=== PATIENT | male | born 1945 | race Caucasian/White ===

== ENCOUNTER → 2019-10-26 08:20 | Outpatient (BNVA) | payer MEDICARE, SELFPAY | PROVIDERS: Family Provider Family Medicine; PCP Family Medicine; Visit Provider Internal Medicine Rheumatology | DX: M06.00 Rheumatoid arthritis without rheumatoid factor, unspecified site (principal); Z79.899 Other long term (current) drug therapy; M19.90 Unspecified osteoarthritis, unspecified site | CPT/HCPCS: 36415; 80053; 85007; 85027; 99213 ==

== ENCOUNTER → 2019-11-01 10:42 | Outpatient (BNVA) | payer MEDICARE, SELFPAY | PROVIDERS: Family Provider Family Medicine; PCP Family Medicine; Visit Provider Nurse Practitioner Family | DX: R97.20 Elevated prostate specific antigen [PSA] (principal); Z80.42 Family history of malignant neoplasm of prostate | CPT/HCPCS: 84153 ==

== ENCOUNTER → 2020-05-03 09:59 | Outpatient (BNVA) | payer MEDICARE, SELFPAY | PROVIDERS: Family Provider Family Medicine; PCP Family Medicine; Visit Provider Urology | DX: R97.20 Elevated prostate specific antigen [PSA] (principal); N39.9 Disorder of urinary system, unspecified; Z80.42 Family history of malignant neoplasm of prostate | CPT/HCPCS: 84153 ==

== ENCOUNTER 2020-09-11 09:57 | Outpatient (CLI) | payer MEDICARE, SELFPAY ==
--- NOTE | 2020-09-11 10:06 | CT_ITS ---
WS: [id number] CT NECK TECHNIQUE: Contrast-enhanced CT of the neck with coronal and sagittal reformatted images. CLINICAL INFORMATION: ALLERGIC RHINITIS COMPARISON: None. DLP: 2985.[address] scans at [facility] use at least one of these dose optimization techniques: automat ed exposure control; mA and/or kV adjustment per patient size (includes targeted exams where dose is matched to clinical indication); or iterative reconstruction. FINDINGS: Images of the tongue base are degraded due to beam hardening artifact from dental hardware. Parotid g lands and submandibular glands are normal. Normal thyroid gland. Normal parapharyngeal fat. Normal po sterior nasopharynx. No cervical lymphadenopathy. Partially visualized intracranial contents unremarkable. Mastoid air cells and paranasal sinuses are well aerated. No evidence of supraglottic or glottic mass. Normal vallecula and piriform sinuses. Sub glottic airway is patent. Lung apices are well aerated. Small right thyroid nodule measuring 8 mm. Mo derate spondylitic changes cervical spine. CT/CT neck w con* [id number] IMPRESSION: 1. Normal salivary glands. 2. No cervical lymphadenopathy. 3. No evidence supraglottic or glottic mass. Subglottic airway is patent. 4. Paranasal sinuses and mastoid air cells well aerated. 5. Small 8 mm low-attenuation right thyroid nodule.
[2020-09-11] MEDS: iodixanol 320 mg/mL 100mL Btl IV (10:31)
== END 2020-09-11 09:58 | disposition home or self-care (01) ==
LOC: RADWPI 09:59
PROVIDERS: PCP Family Medicine; Visit Provider Specialist
DX: J30.9 Allergic rhinitis, unspecified (principal); E04.1 Nontoxic single thyroid nodule
CPT/HCPCS: 70491; Q9967

== ENCOUNTER → 2021-01-16 09:46 | Outpatient (BNVA) | payer MEDICARE, SELFPAY | PROVIDERS: PCP Family Medicine; Visit Provider Urology | DX: R97.20 Elevated prostate specific antigen [PSA] (principal); Z80.42 Family history of malignant neoplasm of prostate | CPT/HCPCS: G0103 ==

== ENCOUNTER → 2021-04-18 11:03 | Outpatient (BNVA) | payer MEDICARE, SELFPAY | PROVIDERS: PCP Family Medicine; Visit Provider Urology | DX: R97.20 Elevated prostate specific antigen [PSA] (principal); Z80.42 Family history of malignant neoplasm of prostate | CPT/HCPCS: 84153 ==

== ENCOUNTER → 2021-08-02 08:48 | Outpatient (BNVA) | payer MEDICARE, SELFPAY | PROVIDERS: PCP Family Medicine; Visit Provider Urology | DX: R97.20 Elevated prostate specific antigen [PSA] (principal); Z80.42 Family history of malignant neoplasm of prostate | CPT/HCPCS: 84153 ==

== ENCOUNTER → 2021-11-28 10:45 | Outpatient (BNVA) | payer MEDICARE, SELFPAY | PROVIDERS: PCP Family Medicine; Visit Provider Urology | DX: R97.20 Elevated prostate specific antigen [PSA] (principal); Z80.42 Family history of malignant neoplasm of prostate | CPT/HCPCS: 84153 ==

== ENCOUNTER 2022-03-04 14:53 | Outpatient (CLI) | payer MEDICARE, SELFPAY | END 2022-03-04 14:54 | disposition home or self-care (01) | LOC: LAB 14:56 | PROVIDERS: PCP Family Medicine; Visit Provider Urology | DX: R97.20 Elevated prostate specific antigen [PSA] (principal) | CPT/HCPCS: 36415; 84153 ==

== ENCOUNTER → 2022-03-06 13:10 | Outpatient (BNVA) | payer MEDICARE, SELFPAY | PROVIDERS: PCP Family Medicine; Visit Provider Urology | DX: Z80.42 Family history of malignant neoplasm of prostate (principal); R97.20 Elevated prostate specific antigen [PSA] | CPT/HCPCS: 81003; 99213 ==

== ENCOUNTER 2022-04-28 07:19 | Outpatient (CLI) | payer MEDICARE, SELFPAY ==
--- NOTE | 2022-04-28 07:32 | US_ITS ---
WS: [id number] RENAL ULTRASOUND HISTORY: RENAL INSUFFICIENCY COMPARISON: None available. TECHNIQUE: 2-D and color Doppler imaging of the kidney submitted. Right kidney: 9.4 cm x 5.8 cm x 5.6 cm. Normal echogenicity with no hydronephrosis or mass. Left kidney: 9.9 cm x 3.8 cm x 4.0 cm. Normal size kidney. No hydronephrosis or solid mass. Simple cyst superior pole measures 3.7 x 3.4 x 3 .4 cm. Additional simple cyst from the lower pole measures 1.4 x 1.2 x 1.0 cm. Aorta: Mild atherosclerotic plaque. No aneurysm. Urinary Bladder: Very mild bladder wall thickening is diffuse without a focal mass. May be due to out let obstruction. Prostate gland is enlarged measuring 4.9 x 4.0 x 4.1 cm Prostate encroaches into the base of the urinary bladder. US/US renal BI* [id number] IMPRESSION: 1. No hydronephrosis. 2. LEFT kidney contains 2 simple renal cysts. 3. Enlarged prostate gland with bladder wall thickening due to partial outlet obstruction.
== END 2022-04-28 07:20 | disposition home or self-care (01) ==
LOC: RAD 07:26
PROVIDERS: PCP Family Medicine; Visit Provider Family Medicine
DX: N28.9 Disorder of kidney and ureter, unspecified (principal); N28.1 Cyst of kidney, acquired; N40.0 Benign prostatic hyperplasia without lower urinary tract symptoms
CPT/HCPCS: 76770

== ENCOUNTER 2022-06-30 10:04 | Outpatient (CLI) | payer MEDICARE, SELFPAY ==
[2022-06-30 11:00] LABS: Prostate Specific AG Urology 17.92 ng/mL (0-4)
== END 2022-06-30 10:05 | disposition home or self-care (01) ==
LOC: LAB 10:06
PROVIDERS: PCP Family Medicine; Visit Provider Urology
DX: R97.20 Elevated prostate specific antigen [PSA] (principal)
CPT/HCPCS: 84153

== ENCOUNTER → 2022-07-07 13:00 | Outpatient (BNVA) | payer MEDICARE, SELFPAY | PROVIDERS: PCP Family Medicine; Visit Provider Urology | DX: R97.20 Elevated prostate specific antigen [PSA] (principal); Z80.42 Family history of malignant neoplasm of prostate | CPT/HCPCS: 99213 ==

== ENCOUNTER 2022-10-27 11:10 | Outpatient (CLI) | payer MEDICARE, SELFPAY ==
[2022-10-27 12:54] LABS: Prostate Specific AG Urology 15.89 ng/mL (0-4)
== END 2022-10-27 11:11 | disposition home or self-care (01) ==
PROVIDERS: PCP Family Medicine; Visit Provider Urology
DX: R97.20 Elevated prostate specific antigen [PSA] (principal)
CPT/HCPCS: 84153

== ENCOUNTER → 2022-11-04 15:49 | Outpatient (BNVA) | payer MEDICARE, SELFPAY | PROVIDERS: PCP Family Medicine; Visit Provider Urology | DX: R97.20 Elevated prostate specific antigen [PSA] (principal); Z80.42 Family history of malignant neoplasm of prostate | CPT/HCPCS: 81003; 99213 ==

== ENCOUNTER 2023-08-24 12:54 | Outpatient (CLI) | payer MEDICARE, SELFPAY ==
--- NOTE | 2023-08-24 13:00 | USCV_ITS ---
Damir Tej Age: 78 Gender: M : 1945 Exam Date: 08/24/2023 13:31 Ordering Phys: Jayme Brown DO Technologist: Nelly Crowder Exam Location: [facility] – [place] Indication: HTN BP: 142 / 82 HR: 64 Rhythm: Sinus Technical Quality: Suboptimal MEASUREMENTS (Male / Female) Normal Values 2D ECHO LV Diastolic Diameter PLAX 3.9 cm 4.2 - 5.9 / 3.9 - 5.3 cm LV Systolic Diameter PLAX 1.8 cm IVS Diastolic Thickness 0.8 cm 0.6 - 1.0 / 0.6 - 0.9 cm IVS Systolic Thickness 1.8 cm LVPW Diastolic Thickness 1.3 cm 0.6 - 1.0 / 0.6 - 0.9 cm LVPW Systolic Thickness 1.3 cm LVOT Diameter 2.1 cm LV Ejection Fraction 2D Teich 86.0 % LV Ejection Fraction MOD 2C 46.1 % LV Ejection Fraction 2C AL 46.9 % LA Diameter 2.8 cm LA Width 3.8 cm LA Height 4.6 cm RA Width 4.1 cm RA Height 4.6 cm Aorta at Sinotubular Diameter 2.5 cm IVC Diameter 2.6 cm M-MODE Aortic Annulus Diameter 3.0 cm LA Ao Ratio MM 0.9 MV E Point Septal Separation 0.7 cm DOPPLER AV Peak Velocity 121.0 cm/s LVOT Peak Velocity 126.0 cm/s AV Area Cont Eq vti 3.2 cm squared AV Area Cont Eq pk 3.5 cm squared MV Peak Velocity 86.0 cm/s MV Area PHT 3.3 cm squared Mitral E to A Ratio 0.8 MV E' Velocity 31.0 cm/s Mitral E to MV E' Ratio 5.5 Mitral E to LV E' Lateral Ratio 5.2 Mitral E to LV E' Septal Ratio 5.9 TR Peak Velocity 142.7 cm/s TR Peak Gradient 8.1 mmHg Right Atrial Pressure 5.0 mmHg Pulmonary Artery Systolic Pressu 13.1 mmHg PV Peak Velocity 64.0 cm/s RV Acceleration Time 0.1 s RV Ejection Time 0.3 s RV AcT/ET 0.3 FINDINGS Left Ventricle The ventricle is normal in size. There appears to be very mild global hypokinesis without regional wall motion disturbances. The ejection fraction is 45-50% In 1 view, the parasternal short axis view, there may be slightly greater hypokinesis of the inferior wall, though this is not confirmed in other views. Grade 1 diastolic dysfunction. Right Ventricle Normal right ventricular size and systolic function. Normal right ventricular systolic pressure. Right Atrium The right atrium is normal in size. Left Atrium The left atrium is normal in size. Mitral Valve Structurally normal mitral valve. Mild mitral valve regurgitation. Aortic Valve Structurally normal aortic valve without significant sclerosis or stenosis. There is no aortic regurgitation. Tricuspid Valve Structurally normal tricuspid valve without significant stenosis or regurgitation. Pulmonary artery systolic pressure is normal. Pulmonic Valve Pulmonic valve not well visualized. Pericardium Normal pericardium without effusion. Aorta Normal ascending aorta dimension. IVC The inferior vena cava appears normal. CONCLUSIONS The ventricle is normal in size. There appears to be very mild global hypokinesis without regional wall motion disturbances. The ejection fraction is probably 45-50%. In 1 view, the parasternal short axis view, there may be slightly greater hypokinesis of the inferior wall, though this is not confirmed in other views. Grade 1 diastolic dysfunction. Structurally normal mitral valve. Mild mitral valve regurgitation. The mild decrease in the ejection fraction is the only changes noted from previous ultrasounds done in 2012, [address] Jared Hong MD (Electronically Signed) Final Date: 25 August 2023 15:39 S
== END 2023-08-24 12:55 | disposition home or self-care (01) ==
PROVIDERS: PCP Family Medicine; Visit Provider Electrodiagnostic Medicine
DX: I11.0 Hypertensive heart disease with heart failure (principal); I50.40 Unspecified combined systolic (congestive) and diastolic (congestive) heart failure; I34.0 Nonrheumatic mitral (valve) insufficiency
CPT/HCPCS: 93306